=== PATIENT | male | born 1995 | race Caucasian/White ===

== ENCOUNTER 2025-01-27 03:57 | Emergency (ER) | payer SELFPAY ==
[~2025-01-27] VITALS: Ht 182.9 cm; Wt 72.6 kg
[2025-01-27] MEDS: TDAP [DIPH/PERTUSSIS/TET] 0.5 ML VIAL IM ONE (04:47)
[2025-01-27] MEDS ORDERED: LIDOCAINE MPF 1%-EPI 1:200,000 30 ML VIAL IJ ONE (05:27)
[2025-01-27] MEDS: LIDOCAINE HCL/PF 1% 30 ML VIAL IM ONE (05:28)
[2025-01-27 06:09] VITALS: BP 110/66; TEMP 97.9; O2SAT 97
== END 2025-01-27 06:10 | disposition home or self-care (01) ==
LOC: ER 04:04
DX: S51.812A Laceration without foreign body of left forearm, initial encounter (principal); Z60.2 Problems related to living alone; Y08.89XA Assault by other specified means, initial encounter; Y93.89 Activity, other specified; Y92.89 Other specified places as the place of occurrence of the external cause; Y99.8 Other external cause status
CPT/HCPCS: 12002; 73090; 99283; J3490